=== PATIENT | male | born 1955 | race Asian ===

== ENCOUNTER 2019-04-02 10:24 | Inpatient (IN) | payer OTHER ==
[2019-04-02] MEDS ORDERED: SODIUM CHLORIDE 1,000 ML IV SCH (10:30)
--- NOTE | 2019-04-02 10:41 | PDOC ---
History of Present Illness - General Chief Complaint: Blood Pressure Problem Stated Complaint: Blood Pressure Problem Time Seen by Provider: 04/02/19 10:32 - History of Present Illness Initial Comments: 04/02/19 10:42 63 year old man with a PMHx of CVA/TIA (residual R sided deficit and slight aphasia), HTN who presents with AMS sudden onset 929, the patient was observed by his to suddenly bring his handsto his mouth, biting his hands, eye rolling back, unable to speak. Daughter denies any recent illness, fever, cough , n/v/d/c, medication changes. The patient at bedside is has improved since initial presentation, is able to follow commands and is AOx2, he is still confused and slow to talk and respond. Per daughter this is not baseline ROS - limited 2/2 confused PE GENERAL: Awake, alert, and fully oriented, in no acute distress HEAD: No signs of trauma, normocephalic, atraumatic EYES: PERRLA, EOMI, sclera anicteric, conjunctiva clear ENT: oropharynx clear without exudates. Moist mucosa NECK: Normal ROM, supple LUNGS: No distress, speaks full sentences, clear to auscultation bilaterally HEART: Regular rate and rhythm, normal S1 and S2, no murmurs, rubs or gallops, peripheral pulses normal and equal bilaterally. ABDOMEN: Soft, nontender, normoactive bowel sounds. No guarding, no rebound. No masses EXTREMITIES : Normal inspection, Normal range of motion, no edema. No clubbing or cyanosis. NEUROLOGICAL: Patient can follow commands, and knows name and birthday as well as daughters name SKIN: Warm, Dry, normal turgor, no rashes or lesions noted MDM DDX including but not limited to: r/o cva consider seizure vs electrolyte NIHSS 6 on arrival ED Course: Upon arrival patient was assessed and Code Conde was called Asymmetric sigmoid sinus and R sided lobe atrophy as dictated by Radiology Dr. Richter to resident Dr. Canela upon chart review, prior head CT shows similar hypodense and hyperdense patterns ekg: nsr at 62bpm Dr. Smith Neurology paged 04/02/19 12:[address] scan patient with NIHSS of 2 Rapid improvement will avoid tpa 04/02/19 12:[address] Smith, recommend keppra load as history concerning for seizure Plan for admission tPA Exclusion Checklist 0-3hr - Time Elapsed Date last known well: 04/02/19 Time last known well: 09:30 Elaspsed time: 26 Day(s) and 6 Hour(s) and 39 Minutes - Thrombolytic Therapy Candidate Is the patient eligible for Thrombolytic Therapy?: No - Exclusion Criteria 0-3hr SBP greater than 185 or DBP greater than 110mmHg despite tx: No Recent IC/spinal surgery,head trauma or stroke w/in last 3mo: No Hx of previous IC hemorrhage, IC neoplasm, AVM or aneurysm: No Active internal bleeding: No Blding diathesis(low plt ct, inc PTT,INR>1.7 or use of NOAC): No Symptoms suggest subarachnoid hemorrhage: No CT demonstrates multilobar infarct(>1/3 cerebral hemiphere): No Arterial puncture at noncompressible site in previous 7 days: No Blood glucose concentration less than 50mg/dL (2.7mmol/L): No - Relative Exclusion Criteria 0-3h Life expectancy <1yr/severe co-morbid illness/WAX PUMPER on admit: No : No Patient/family refused: No Rapid improvement: Yes Stroke severity too mild: No Recent acute NM (w/in previous 3 months): No Seizure at onset with postictal residual neuro impairments: No Major surgery or serious trauma w/in previous 14 days: No Recent GI or hemorrhage (w/in previous 21 days): No - Ineligibility reason(s) Reasons No tPA given: See reason(s) noted above NIH Stroke Scale - Last Known Well Date/Time & Onset Date Last Known Well: 04/02/19 Time Last Known Well: 09:30 - Initial Evaluation Level of consciousness: Alert Ask patient the month and their age: Both incorrect Ask patient to open & close eyes; make fist and let go: Both incorrect Best gaze (horizontal eye movement): Normal Visual field testing: No visual field loss Facial paresis (Show teeth/raise eyebrows/close eyes tight): Normal symmetrical movement Motor Function: Left Arm: Untestable (Joint fused orlimb amputated), explain: Motor Function: Right Arm: Untestable (Joint fused or limb amputated), explain: Motor Function: Left Leg: Untestable (Joint fused or limb amputated), explain: Motor Function: Right Leg: Untestable )Joint fused orlimb amputated), explain: Limb Ataxia: Untestable (Joint fused or limb amputated), explain: Sensory(Use pinprick test arms,legs,trunk,face/side to side): Normal Best language (Describe picture, name items, read sentences): Mild to moderate aphasia Dysarthria (read several words): Mild to moderate slurring of words Extinction and Inattention: No abnormality - Total Score NIH Stroke Scale Score: 6 Past History - Past Medical History Allergies/Adverse Reactions: Allergies Allergy/AdvReac Type Severity Reaction Status Date / Time No Known Drug Allergies Allergy Verified 04/02/19 10:38 Home Medications: Ambulatory Orders Lisinopril [Prinivil] 10 mg PO DAILY #30 tablet 04/17/14 Gabapentin 300 mg PO TID 04/02/19 Simvastatin 20 mg PO DAILY 04/02/19 Aspirin Coated [Ecotrin -] 81 mg PO DAILY #30 tablet.ec 04/04/19 Clopidogrel Bisulfate [Plavix -] 75 mg PO DAILY #30 tablet 04/04/19 levETIRAcetam [Keppra -] 500 mg PO BID #60 tablet 04/04/19 Anemia: No Asthma: No Cancer: No Cardiac Disorders: No CVA: Yes (2015 right sided deficits) COPD: No CHF: No Dementia: No Diabetes: No GI Disorders: No Disorders: No HTN: Yes Hypercholesterolemia: Yes Liver Disease: No Seizures: No Thyroid Disease: No - Psycho Social/Smoking Cessation Hx Smoking History: Unknown if ever smoked Have you smoked in the past 12 months: Yes Number of Cigarettes Smoked Daily: 30 'Breaking Loose' booklet given: 04/12/14 Hx Alcohol Use: No Drug/Substance Use Hx: No Substance Use Type: None Hx Substance Use Treatment: No *Physical Exam - Vital Signs Last Vital Signs Temp Pulse Resp BP Pulse Ox 70 16 128/78 100 04/02/19 10:25 04/02/19 10:25 04/02/19 10:25 04/02/19 10:25 ED Treatment Course - LABORATORY CBC & Chemistry Diagram: 04/04/19 06:28 04/04/19 06:28 - ADDITIONAL ORDERS Additional order review: Laboratory Results 04/02/19 10:29 POC Glucometer 147 04/02/19 10:29 POC Glucometer 147 Discharge - Discharge Information Problems reviewed: Yes Clinical Impression/Diagnosis: Altered mental status Condition: Fair Disposition: VNS/HOME HEALTH CARE - Follow up/Referral - Patient Discharge Instructions - Post Discharge Activity
[2019-04-02 11:20] LABS: BASO % 0.5 % (0-2.0); EOS % 3.7 % (0-4.5); HEMATOCRIT 47.7 % (35.4-49); LYMPH % 22.6 % (8-40); MCH 28.1 pg (25.7-33.7); MCHC 33.5 g/dl (32.0-35.9); MEAN PLT VOLUME 9.7 fl (7.5-11.1); MONO % 7.5 % (3.8-10.2); NEUT % 65.7 % (42.8-82.8); PLATELET COUNT 220 K/MM3 (134-434); RBC 5.69 M/mm3 (4.00-5.60); RDW 14.8 % (11.9-15.9); WHITE BLOOD COUNT 10.3 K/mm3 (4.0-10.0)
--- NOTE | 2019-04-02 11:22 | PDOC ---
Documentation entered by Yudy Elliott SCRIBE, acting as scribe for Marianela Melgar MD. Marianela Melgar MD: This documentation has been prepared by the scribe, Yudy Elliott SCRIBE, under my direction and personally reviewed by me in its entirety. I confirm that the documentation accurately reflects all work, treatment, procedures, and medical decision making performed by me. Attending Attestation - HPI HPI: 04/02/19 11:11 The patient is a 63-year-old male with a past medical history significant for CVA/TIA and HTN, who presents to the emergency department via EMS for altered mental status. The daughter at the bedside reports, the patient was his usual self this morning. He woke up, ate breakfast, and was drinking tea. Around 9:45 am, he stood up, clenched his fist, and put it in his mouth. Following the episode, the patient became nonverbal. The patient's called the daughter, who called EMS. Kwame ritchie was activated at the ED. - Physicial Exam PE: 04/02/19 11:16 GENERAL: Alert, in no acute distress. LUNGS: Breath sounds equal, clear to auscultation bilaterally. HEART: Regular rate and rhythm. ABDOMEN: Soft, nontender, nondistended. EXTREMITIES: Normal range of motion, no edema. No clubbing or cyanosis. No cords, erythema, or tenderness NEUROLOGICAL: Alert, oriented x3, pt has slurred speech with hesitancy in his voice, 2/5 strength in his right upper and lower extremity. - Medical Decision Making 04/02/19 11:17 Pt presents to the ED complaining of the acute onset of apashia that started at 9:45 am. Daughter was conversing with the patient who was in his usual state of health before that. PAtient was completely aphasic on arrival to the ED, and now is oriented x 3 and is following commands, although he does have some hesitancy in his speech. Given rapid improvement, will hold off on TPA for now. Attempted to page Dr. Smith without response x 2. will reattempt. 04/02/19 12:[address] Smith: 11:04am, 11:21am, 12:02pm. Spoke to the service, waiting for a call back. 04/02/19 12:[address] Smith.
[2019-04-02 11:57] LABS: ALBUMIN 3.8 g/dl (3.4-5.0); BILIRUBIN,TOTAL 0.5 mg/dL (0.2-1); CALCIUM 9.2 mg/dL (8.5-10.1); CREATININE 1.2 mg/dL (0.55-1.3); MAGNESIUM 2.4 mg/dL (1.8-2.4); PHOSPHOROUS 3.4 mg/dL (2.5-4.9); POTASSIUM 4.8 mmol/L (3.5-5.1); TOT PROT 7.5 g/dl (6.4-8.2)
[2019-04-02 12:09] LABS: INR 1.03 (0.83-1.09); PROTHROMBIN TIME (PATIENT) 12.1 SEC (9.7-13.0)
[2019-04-02 12:12] LABS: ACTIVATED PTT 30.5 SECONDS (25.2-36.5)
[2019-04-02] MEDS ORDERED: levETIRAcetam 500 MG/5 ML INJECTION VIAL IVPB ONE ×2 (12:22→12:24)
[2019-04-02] MEDS ORDERED: ASPIRIN 325 MG TABLET PO SCH (13:00)
[2019-04-02] MEDS ORDERED: ASPIRIN 325 MG ENTERIC COATED TABLET (FP) ONE (13:19)
[2019-04-02] MEDS ORDERED: LISINOPRIL 5 MG TABLET (FP) ONE (13:20)
[2019-04-02] MEDS: LISINOPRIL 10 MG TABLET (FP) PO SCH (13:25)
[2019-04-02 14:42] VITALS: BMI 31.3
[2019-04-02] MEDS: GABAPENTIN 300 MG CAPSULE PO SCH ×2 (15:00→21:25)
--- NOTE | 2019-04-02 15:30 | HP ---
Admitting History and Physical - Primary Care Physician PCP: Reynaldo Townsend - Admission Chief Complaint: Altered mental status History of Present Illness: 63 year old man with a PMHx of CVA/TIA (residual R sided deficit and slight aphasia), HTN who presents with AMS sudden onset 929, the patient was observed by his to suddenly bring his handsto his mouth, biting his hands, eye rolling back, unable to speak. Daughter denies any recent illness, fever, cough , n/v/d/c, medication changes. The patient at bedside is has improved since initial presentation, is able to follow commands and is AOx2, he is still confused and slow to talk and respond. 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 Cardiovascular: Yes: HTN Pulmonary: Yes: COPD Additional Past Medical History: Hyperlipidemia and hypertension - Past Surgical History Additional Past Surgical History: None - Smoking History Smoking history: Former smoker Have you smoked in the past 12 months: No Aproximately how many cigarettes per day: 30 If you are a former smoker, when did you quit?: 6 months ago - Alcohol/Substance Use Hx Alcohol Use: No - Social History Usual Living Arrangement: Yes: With Spouse ADL: Independent 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 History of Recent Travel: No Home Medications - Allergies Allergies/Adverse Reactions: Allergies Allergy/AdvReac Type Severity Reaction Status Date / Time No Known Drug Allergies Allergy Verified 04/02/19 10:38 - Home Medications Home Medications: Ambulatory Orders Aspirin [ASA -] 325 mg PO DAILY #30 tablet 04/17/14 Lisinopril [Prinivil] 10 mg PO DAILY #30 tablet 04/17/14 Gabapentin 300 mg PO TID 04/02/19 Simvastatin 20 mg PO DAILY 04/02/19 Family Medical History Family History: Denies Review of Systems - Review of Systems Constitutional: reports: No Symptoms Eyes: reports: No Symptoms HENT: reports: No Symptoms Neck: reports: No Symptoms Cardiovascular: reports: No Symptoms Respiratory: reports: No Symptoms Gastrointestinal: reports: No Symptoms Genitourinary: reports: No Symptoms Breasts: reports: No Symptoms Reported Musculoskeletal: reports: No Symptoms Neurological: reports: Change in LOC, Change in Speech, Confusion, Incoordination, Seizure Hematology/Lymphatic: reports: No Symptoms Psychiatric: reports: No Symptoms Physical Examination Vital Signs: Vital Signs Temperature 97.9 F 04/02/19 13:50 Pulse Rate 84 04/02/19 13:50 Respiratory Rate 18 04/02/19 13:50 Blood Pressure 127/62 04/02/19 13:50 O2 Sat by Pulse Oximetry (%) 98 04/02/19 13:50 Constitutional: Yes: Well Nourished, No Distress Eyes: Yes: Conjunctiva Clear HENT: Yes: Atraumatic Neck: Yes: Trachea Midline Cardiovascular: Yes: Regular Rate and Rhythm Respiratory: Yes: CTA Bilaterally Gastrointestinal: Yes: Normal Bowel Sounds Musculoskeletal: Yes: WNL Extremities: Yes: WNL Edema: No Neurological: Yes: WNL, Alert, Oriented (He has a right-sided hemiparesis) Labs: CBC, BMP 04/02/19 11:00 04/02/19 11:00 Imaging - Results Cat Scan: Report Reviewed, Image Reviewed Problem List - Problems (1) Hyperlipidemia Assessment/Plan: Continue simvastatin Code(s): E78.5 - HYPERLIPIDEMIA, UNSPECIFIED (2) CVA (cerebral vascular accident) Assessment/Plan: He has a repeat CAT scan done in the hospital which is unchanged from the previous 1 ER physician discussed with the neurologist and recommended that there is a possibility of seizure disorder patient already started on Keppra in the ER intravenous and will continue 5 mg twice a day will order EEG rule out seizure disorder. Code(s): I63.9 - CEREBRAL INFARCTION, UNSPECIFIED (3) HTN (hypertension) Assessment/Plan: Stable continue his usual medications. Code(s): I10 - ESSENTIAL (PRIMARY) HYPERTENSION
--- NOTE | 2019-04-02 15:37 | CONSULT ---
Consult - text type - Consultation Consultation Note: NEUROLOGY CONSULTATION is greatly appreciated: Events reviewed and discussed with ED resident this AM. Patient examined with his family at the bedside. His daughter (RN) provides excellent history. This 63 yo RH m, man with h/o HTN, Chol, and TG is s/p left CVA in 2014 with right hemiparesis and aphasia. Review of our records shows only an admission CT but no F/U study or angiography. Pt. spent 2 mos in [place] than at [facility] with improvement is speech and right sided weakness. He does have residual, expressive speech difficulty (comprehension intact) and walks with a cane. This AM he was talking to his when his left hand turned into a fist and he began to bite it. then his eyes "rolled back" and he lost consciousness for approx 10 mins, with palor and diaphoresis. During which time neither family nor EMS could obtain BP. When he "woke up" his speech was significantly worse and has been slowing improving since. ROS: C/O numbness right dig IV and V CT of head (reviewed): Multiple, chronic left sided strokes (all in MCA territory) and left sided atrophy with ex vacuo enlargement of the left lateral ventricle. WING: No bruits. Cor reg. No evidence of external head trauma. NEURO: Awake, alert, cooperative. Expressive aphasia. Comprehension better preserved. CN II-XII: Full christianson ad EOM's. Min right facial. Gag OK. Swallows coffee without difficulty. Motor: Right hemiparesis with drift and spastic tone. Right Benedictine sign. Atrophic Right FDI (3/5). Increased reflexes on right. Right Babinski Sensory: Difficult to test but probably normal Gait: Right circumduction. IMP: Chronic Left cerebral dysfunction s/p Left CVA (s)- all in the MCA territory Doubt new CVA (but cannot fully exclude)- rather suspect new-onset focal seizure with increased aphasia as a Joss's phenomenon. 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 MRI of brain and MR Angio of intracranial circulation Carotid duplex doppler Speech therapy eval and Rx PT eval and Rx R/O occult infection Out patient neuro f/u amnd EMG/NCS for right ulnar MN Thank you very much, Jay Smith MD
[2019-04-02] MEDS ORDERED: FLU VACCINE QUAD 60 MCG/0.5 ML (MDV 19-20) IM ONE (16:00)
[2019-04-02 17:11] LABS: PH,URINE 6.5 (5.0-8.0); URINE APPEARANCE CLEAR; URINE BILIRUBIN NEGATIVE (NEGATIVE); URINE COLOR YELLOW; URINE GLUCOSE (UA) NEGATIVE (NEGATIVE); URINE KETONE NEGATIVE (NEGATIVE); URINE LEUK ESTERASE NEGATIVE (NEGATIVE); URINE NITRITE NEGATIVE (NEGATIVE); URINE PROTEIN NEGATIVE (NEGATIVE); URINE UROBILINOGEN 0.2 mg/dL (0.2-1.0)
--- NOTE | 2019-04-02 17:28 | EKG ---
Test Reason : Blood Pressure : / mmHG Vent. Rate : 062 BPM Atrial Rate : 062 BPM P-R Int : 188 ms QRS Dur : 084 ms QT Int : 410 ms P-R-T Axes : 031 -26 029 degrees QTc Int : 416 ms NORMAL SINUS RHYTHM RSR' OR QR PATTERN IN V1 SUGGESTS RIGHT VENTRICULAR CONDUCTION DELAY NORMAL ECG WHEN COMPARED WITH ECG OF 02-SEP-2014 23:58, NO SIGNIFICANT CHANGE WAS FOUND BASELINE ARTIFACT Confirmed by NATE CARY, LAMONT ([id number]) on 04/02/2019 5:27:49 PM Referred By: Confirmed By:LAMONT SULLIVAN MD
[2019-04-02] MEDS: levETIRAcetam 500 MG TABLET (FP) PO SCH (21:25)
[2019-04-02] MEDS: ATORVASTATIN CA 10 MG TABLET (FP) PO SCH (21:25)
[2019-04-03] MEDS: GABAPENTIN 300 MG CAPSULE PO SCH ×3 (06:10→21:33)
--- NOTE | 2019-04-03 08:25 | PN ---
Progress Note (short form) - Note Progress Note: 63 yo man withy ho HTN, high cholesterl and CVA in 2014 admitted for LOC and seizure yesterday CBC, BMP 04/02/19 11:00 04/02/19 11:00 Vital Signs Period Temp Pulse Resp BP Sys/Schwarz Pulse Ox Last 24 Hr 97.3 F-97.9 F 59-84 16-24 97-137/61-80 98-100 s1s2 rrr lungs cta abd soft nt no edema right sided weakness and aphasia as per family and pt he feels almost at baseline, but appears more lethargic than his norm no edema seizure r/o new cva awaiting mri/mra pt eval speech eval dc planning for tomorrow cont asa/plavix/keppra
[2019-04-03] MEDS: LISINOPRIL 10 MG TABLET (FP) PO SCH (10:28)
[2019-04-03] MEDS: levETIRAcetam 500 MG TABLET (FP) PO SCH ×2 (10:28→21:33)
[2019-04-03] MEDS: ENOXAPARIN NA (PORCINE) 40 MG/0.4 ML DISP.SYRIN SQ SCH (10:28)
[2019-04-03] MEDS: ASPIRIN COATED 81 MG TABLET.EC PO SCH (10:29)
[2019-04-03] MEDS: CLOPIDOGREL BISULFATE 75 MG TABLET (FP) PO SCH (10:29)
--- NOTE | 2019-04-03 11:15 | CONSULT ---
Admitting History and Physical - Primary Care Physician PCP: Katie Soares - Admission History of Present Illness: 63 year old man with a PMHx of CVA/TIA (residual R sided deficit and aphasia), HTN admitted for LOC and seizure. Neurology IMP: Chronic Left cerebral dysfunction s/p Left CVA (s)- all in the MCA territory Doubt new CVA (but cannot fully exclude)- rather suspect new-onset focal seizure with increased aphasia as a Joss's phenomenon. 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 Pt' s daughter who is a nurse at [employer], thought communication was at baseline. However, after he woke up and assessed him, she noted more difficulty speaking, with word errors and reduced fluency and intelligibility.Seemed to be improving as he became more alert. Pending MRI. 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 Cardiovascular: Yes: HTN Pulmonary: Yes: COPD Additional Past Medical History: Hyperlipidemia and hypertension - Past Surgical History Additional Past Surgical History: None - Smoking History Smoking history: Former smoker Have you smoked in the past 12 months: No Aproximately how many cigarettes per day: 30 If you are a former smoker, when did you quit?: 6 months ago - Alcohol/Substance Use Hx Alcohol Use: No - Social History ADL: Independent 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 History of Recent Travel: No History - Admission Reason For Visit: ALTERED MENTAL STATE - Diagnostics X-ray: Report Reviewed CT Scan: Report Reviewed ( Multiple, chronic left sided strokes (all in MCA territory) and left sided atrophy with ex vacuo enlargement of the left lateral ventricle.) MRI: Pending - General Mental Status: Alert and Oriented, Awake and Alert, Vague (Aphasia) Attention: Distractible, Mild Impairment Ability to Follow Directions: Fair Head/Neck Control: Fair - Hearing Hearing: Functional Hearing: Normal Speech Evaluation - Communication Primary Language: MALTESE (maltese,kecia, congolese) Communication: Yes: Dysarthria, Aphasia Oral Expression Ability: Yes: Moderate Impairment - Speech Production Able to Make Needs Known: Yes: Moderately Impaired Intelligibility: Yes: Moderately Impaired - Speech Characteristics Voice Loudness: Normal Voice Pitch: Yes: Normal Voice Phonatory-based Quality: Yes: Dysphonia Speech Pattern: Impaired Speech Clarity: < 50% Nasal Resonance: Normal Articulation: Yes: Imprecise - Language/Auditory Comprehension Follows: Yes: 1 Stage Simple Commands (Unable to follow 2 stage commands) Observation: Able to respond to yes/no queries: Yes (not consistent), Yes/No Confusion: Yes, Comprehends Conversational Speech: Yes (simple with difficulty with longer sentences), Benefits from Repetiton: Yes - Language/Verbal Expression Aphasia: Yes: Nonfluent, Anomia, Impaired Repetition, Paraphrasic Errors, Neologisms, Apraxia, Sound Errors (Unintelligible,rare verbaliztions with occasional word produced upon repitition. Able to count to 3 in unison. Unable to repeat social speech.), Grammatic Errors Able to Respond to Simple Queries: Yes: Moderately Impaired Able to Communicate Wants and Needs: Yes: Moderately Impaired Functional Communication Status: Yes: Moderately Impaired - Swallow Evaluation/Bedside Assessment Current Nutritional Intake: Regular, Thin Liquids Oral Secretions: Yes: WFL Dentition: Yes: Adequate Facial Symmetry at Rest: Symmetrical Facial Symmetry on Retraction: Symmetrical Facial Movement: Controlled Pucker Lips: Normal Smile: Normal Lingual Movement: Symmetric Lingual Movement Strgth Against Opposition: Reduced Laryngeal Movement: Labored,delay initiation Rate of Intake: WFL Bolus Size: WFL Labial Seal: WFL Chewing: WFL Oral Prep Time: WFL A-P Transit: WFL Pocketing: None Timing of Swallow: Delayed Coughing/Throat Clear: No Change in Voice: No Recommendations - Speech Evaluation, Impression/Plan Impression: Seizure. Pending MRI. Expressive and receptive language deficits/ Aphasia. Pt would benefit from Speech tx upon d/c. - Disposition Discharge to: Rehabilitation Center (vs homecare speech tx. Family educated on benefit of continued speech tx. [facility] [employer] [place].), To be Determined - Dysphagia Impressions/Plan Dysphagia Impressions: Minimal Impairment *Silent aspiration: cannot be R/O at bedside - Recommendations Diet Consistency: Regular Medication Administration: Whole with water Liquids: Thin Liquids
[2019-04-03] MEDS: ATORVASTATIN CA 10 MG TABLET (FP) PO SCH (21:33)
--- NOTE | 2019-04-03 21:40 | PN ---
Progress Note (short form) - Note Progress Note: NEUROLOGY PROGRESS Events and studies reviewed. Patient examined with family at the bedside. No further seizures on Keppra 500 mg BID after IV loading. 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 Exam unchanged and sig for spastic right hemiparesis and Right ulnar Mononeuropathy SUGGEST: Stable for D/C on keppra 500 mg BID Plavix 75 mg qd and ASA 81 mg Neuro f/u for EMG/NCS right arm Out patient PT Thank you very much, Jay Smith MD
[2019-04-04] MEDS: GABAPENTIN 300 MG CAPSULE PO SCH (06:34)
[2019-04-04 07:04] LABS: BASO % 2.8 % (0-2.0); EOS % 3.9 % (0-4.5); HEMATOCRIT 41.7 % (35.4-49); HEMOGLOBIN 14.3 GM/dL (11.7-16.9); LYMPH % 26.6 % (8-40); MCH 28.2 pg (25.7-33.7); MCHC 34.3 g/dl (32.0-35.9); MEAN CELL VOLUME 82.3 fl (80-96); MEAN PLT VOLUME 9.8 fl (7.5-11.1); MONO % 10.1 % (3.8-10.2); NEUT % 56.6 % (42.8-82.8); PLATELET COUNT 211 K/MM3 (134-434); RBC 5.07 M/mm3 (4.00-5.60); RDW 14.9 % (11.9-15.9); WHITE BLOOD COUNT 8.9 K/mm3 (4.0-10.0)
[2019-04-04 07:29] LABS: ALBUMIN 3.4 g/dl (3.4-5.0); BILIRUBIN,TOTAL 0.4 mg/dL (0.2-1); BLOOD UREA NITROGEN 8.9 mg/dL (7-18); CALCIUM 8.8 mg/dL (8.5-10.1); CREATININE 0.9 mg/dL (0.55-1.3); POTASSIUM 3.5 mmol/L (3.5-5.1); TOT PROT 6.4 g/dl (6.4-8.2)
[2019-04-04 07:47] VITALS: BP 102/54; PULSE 69; TEMP 98
--- NOTE | 2019-04-04 08:32 | DS ---
Physical Examination Vital Signs: Vital Signs Temperature 98 F 04/04/19 07:47 Pulse Rate 69 04/04/19 07:47 Respiratory Rate 20 04/04/19 07:47 Blood Pressure 102/54 L 04/04/19 07:47 O2 Sat by Pulse Oximetry (%) 96 04/04/19 07:42 Constitutional: Yes: Calm Eyes: Yes: EOM Intact HENT: Yes: Normocephalic Neck: Yes: Trachea Midline Cardiovascular: Yes: Regular Rate and Rhythm Respiratory: Yes: CTA Bilaterally Gastrointestinal: Yes: Normal Bowel Sounds, Soft Musculoskeletal: Yes: WNL Extremities: Yes: WNL Edema: No Peripheral Pulses WNL: Yes Neurological: Yes: Aphasia (expressive), Weakness (right hemiparesis) Psychiatric: Yes: WNL Labs: CBC, BMP 04/04/19 06:28 04/04/19 06:28 Discharge Summary Problems reviewed: Yes Reason For Visit: ALTERED MENTAL STATE Current Active Problems Hyperlipidemia (Acute) Hospital Course: admitted after witnessed seizure episode MRI shows Multiple old left cerebral ischemic areas and left cerebral atrophy 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 started keppra, added plavix, decreased asa to 81 mg has been stable in hospital can dc home, will need outpt rehab Condition: Fair - Instructions Referrals: Reynaldo Townsend MD [Primary Care Provider] - Disposition: HOME - Home Medications Comprehensive Discharge Medication List: Ambulatory Orders Lisinopril [Prinivil] 10 mg PO DAILY #30 tablet 04/17/14 Gabapentin 300 mg PO TID 04/02/19 Simvastatin 20 mg PO DAILY 04/02/19 Aspirin Coated [Ecotrin -] 81 mg PO DAILY #30 tablet.ec 04/04/19 Clopidogrel Bisulfate [Plavix -] 75 mg PO DAILY #30 tablet 04/04/19 levETIRAcetam [Keppra -] 500 mg PO BID #60 tablet 04/04/19 Prescription Drug Monitoring Program (I-STOP) results: I-STOP not reviewed
[2019-04-04] MEDS: ENOXAPARIN NA (PORCINE) 40 MG/0.4 ML DISP.SYRIN SQ SCH (10:24)
[2019-04-04] MEDS: ASPIRIN COATED 81 MG TABLET.EC PO SCH (10:25)
[2019-04-04] MEDS: levETIRAcetam 500 MG TABLET (FP) PO SCH (10:25)
[2019-04-04] MEDS: LISINOPRIL 10 MG TABLET (FP) PO SCH (10:25)
[2019-04-04] MEDS: CLOPIDOGREL BISULFATE 75 MG TABLET (FP) PO SCH (10:25)
--- NOTE | 2019-04-04 12:21 | PN ---
Progress Note, [employer] - Note Progress Note: For d/c today. No insurance for speech tx. Family educated on benefit of continued speech tx. [facility] [place] which is free. Family will call and follow up.
== END 2019-04-04 13:19 | disposition home health service (06) | DRG 57 ==
LOC: JER 10:24 → JERBED 12:30 → J4W 14:03
PROVIDERS: ADMIT Internal Medicine; ATTEND Internal Medicine
DX: I69.30 Unspecified sequelae of cerebral infarction (principal); G81.91 Hemiplegia, unspecified affecting right dominant side; R47.01 Aphasia; G40.909 Epilepsy, unspecified, not intractable, without status epilepticus; E78.5 Hyperlipidemia, unspecified
CPT/HCPCS: 36415; 70450-TC; 70498-TC; 70544-TC; 70551-TC; 71045-TC-FY; 80053; 80177; 81003; 82465; 82550; 82962; 83718; 83721; 83735; 84100; 84478; 84484; 85025; 85610; 85730; 86850; 86900; 86901; 87086; 93005; 93010; 93880-TC; 95816; 97116-GP; 97161-GP; 99285-25; G0008; J7030; Q2036; Q9967